=== PATIENT | female | born 1960 | race Caucasian/White ===

== ENCOUNTER 2022-05-14 11:08 | Outpatient (CLI) | payer OTHER, SELFPAY ==
--- NOTE | 2022-05-14 11:34 | ECG_ITS ---
Measurements Intervals [place] Rate: 68 P: 9 VA: 140 QRS: 3 QRSD: 90 T: 21 QT: 387 QTc: 413 Interpretive Statements SINUS RHYTHM BASELINE ARTIFACT- I, II, III, AVR, AVL, AVF, V1-V6 NORMAL ECG NO PREVIOUS ECG AVAILABLE FOR COMPARISON Electronically Signed On 05-14-2022 12:31:02 ANATOMY PROFESSOR by Zach Abraham D.O.
== END 2022-05-14 11:09 | disposition home or self-care (01) ==
LOC: ANHSURGERY 11:15
PROVIDERS: Visit Provider Otolaryngology
DX: I10 Essential (primary) hypertension (principal); Z01.818 Encounter for other preprocedural examination
CPT/HCPCS: 93005

== ENCOUNTER 2022-05-17 01:07 | Day surgery (SDC) | payer OTHER, SELFPAY ==
[2022-05-10 14:25] VITALS: BMI 28.0
--- NOTE | 2022-05-10 14:31 | PC.NURSE ---
Report to the Outpatient Waiting Room, entrance under the green pavilion located off [facility], at time 0730 on date 05/17/22. Planned Procedure Time: 0930. Time changes happen often and if your time is changed the preop area will call you the afternoon before. - You and your visitor will be asked to self-screen and do not enter if you have any COVID symptoms. - We encourage only one visitor and NO visitors under age 16 are allowed at this time. Your visitor will receive communication by the phone number that is given day of service. - The patient visitor is requested to social distance or may leave the building when not with patient due to restrictions. - A mask is OPTIONAL within the hospital. Patients may have clear liquids (water, carbonated beverages, clear teas, apple juice) until 3 hours prior to surgery (0630) with a maximum of 20 ounces. - No food from midnight until time of surgery Take the following medications with a SIP of water the morning of surgery: NONE Medications to discontinue per physician: VITAMINS/SUPPLEMENTS Date to take last dose: 05/13/22 Please no make-up, nail [place], hairspray, perfume, deodorant, or body powder the day of surgery. No jewelry (including any body piercings) or valuables the day of surgery, leave them at home. Please take a shower or bath the night before, or the morning of, surgery with an antibacterial soap. Wear comfortable, loose fitting clothing. - Jewelry must be removed prior to entering the operating room. Rings and piercings that are not removed may be cut off. - The hospital will not accept responsibility for valuables. - Please leave all valuables, including medications, at home the day of surgery. If you are going home after surgery, a licensed driver supervisor must drive you home. - NO public transportation without another adult. - We recommend that an adult stay with you for 24 hours following discharge. - We also recommend that you do not drive, make important decision, drink alcoholic beverages, or take any drugs that were not prescribed by your health care provider for at least 24 hours after your discharge time. Follow any additional instructions given to you from your surgeon. If you or anyone in your household have experienced Covid symptoms in the past week, please notify your surgeon or the nurse liaison at the phone number below for possible testing. Telephone instructions given to KRISTINE CHAMBERLAIN and asked if any additional questions and then verbalized understanding. Patient advised to call surgeon office or pre surgery nurse liaison [phone] if any additional questions.
--- NOTE | 2022-05-14 16:00 | P.PNAN_ITS ---
Anes - Initial Pre Proc Eval Procedure: Operation Date: 05/17/22 07:30 Proposed Procedures p Left Ear Tympanoplasty - Rafal Presley MD Date/Time: 05/14/22 16:00 Surgeon: Rafal Presley MD Pre Op Diagnosis: Tympanic Membrane Perforation Lt Ear Patient Data Age: 61 Gender: F Height: 1.75 m Weight: 86.2 kg Allergies Allergy/AdvReac Type Severity Reaction Status Date / Time No Known Allergies Allergy Verified 05/17/22 06:10 Home Medications Medication Instructions Recorded Confirmed Type ascorbic acid (vitamin C) 500 mg 500 mg PO DAILY 05/10/22 05/17/22 History tablet (Vitamin C) cholecalciferol (vitamin D3) 125 125 mcg PO DAILY 05/10/22 05/17/22 History mcg (5,000 unit) tablet (Vitamin D3) lisinopril 20 mg tablet 20 mg PO DAILY 05/10/22 05/17/22 History multivitamin 1 tablet PO DAILY 05/10/22 05/17/22 History Patient hx anesthesia problems: none Family hx anesthesia problems: none Results Review: All pre-operative results and documents have been reviewed as part of the pre- operative evaluation. [facility] Past Medical History Medical History Breast cancer HTN (hypertension) Overweight (BMI 25.0-29.9) Social History Social History Smoking status: Never smoker Alcohol intake: current Drinks per week: 3 Substance use: never Substance use type: does not use Living arrangements: with family Spiritual care concerns: No Anes - Eval Final PreProcedure Day of Procedure 05/14/22 16:00 Patient weight: overweight Heart: regular rate and rhythm Lungs: clear to auscultation and normal air movement Airway: Mallampati scale class II Neurological: alert and oriented Last oral intake: >/= 8 hours ASA classification: III Emergent: no Anesthetic plan: proceed Anesthesia type and monitoring: general ETT Results Review: All pre-operative results and documents have been reviewed as part of the pre- operative evaluation. Informed Consent: The patient's anesthetic plan and its attendant risks and benefits were discussed with the patient/family/POA. Questions were solicited and answers provided to the satisfaction of the patient/family/POA.
[2022-05-17] VITALS (7 sets, daily range): BP systolic 134–165; BP diastolic 68–91; PULSE 75–84; RESP 14–16; TEMP 36.4–36.5; O2SAT 92–100
--- NOTE | 2022-05-17 06:58 | PM.IMHP ---
H&P: HPI History of Present Illness Date/Time: 05/17/22 06:58 Chief Complaint: left TM perforation Narrative: Lef tTM perforation following AOM 6 months ago Review of Systems Review of Systems: All systems reviewed & are unremarkable except as noted in HPI and below PMFSH Past Medical History Medical History Breast cancer HTN (hypertension) Overweight (BMI 25.0-29.9) Social History Social History Smoking status: Never smoker Alcohol intake: current Drinks per week: 3 Substance use: never Substance use type: does not use Living arrangements: with family Spiritual care concerns: No Meds Home Medications and Allergies Home Medications Medication Instructions Recorded Confirmed Type ascorbic acid (vitamin C) 500 mg 500 mg PO DAILY 05/10/22 05/17/22 History tablet (Vitamin C) cholecalciferol (vitamin D3) 125 125 mcg PO DAILY 05/10/22 05/17/22 History mcg (5,000 unit) tablet (Vitamin D3) lisinopril 20 mg tablet 20 mg PO DAILY 05/10/22 05/17/22 History multivitamin 1 tablet PO DAILY 05/10/22 05/17/22 History Allergies Allergy/AdvReac Type Severity Reaction Status Date / Time No Known Allergies Allergy Verified 05/17/22 06:10 Vital Signs Vital Signs - 24 hr 05/17/22 06:17 Temperature 36.4 C L Pulse Rate 75 Respiratory Rate 16 Blood Pressure 165/91 H Pulse Oximetry 100 Oxygen Delivery Room Air Exam Narrative: 30% left central perforation, no cholesteatoma, rest of exam wnl Assessment and Plan Assessment and plan (1) Perforation of left tympanic membrane: Code(s): H72.92 - Unspecified perforation of tympanic membrane, left ear Status: Acute Plan Alma is here for left medial graft tympanoplasty for perforation after acute otitis media that did not resolve on antibiotics. r/b/a reviewed, left ear marked, she underatnds and elects to proceed. Refer to outpt H&P for details.
--- NOTE | 2022-05-17 07:00 | WPDHPUPDATE1 ---
History and Physical Update Update Date/Time: 05/17/22 07:00 History and Physical has been reviewed, including an updated exam of the patient. There are NO changes in the patient's condition. Risks, benefits, and alternatives have been discussed and questions answered. Patient agrees to proceed with procedure.
[2022-05-17] MEDS: LACTATED RINGERS 1,000 ML 30 ML IV CONT ×2 (07:04→09:07)
[2022-05-17] MEDS: ceFAZolin 2 GM/D5W 50 ML 2 GM/50 ML BAG IVPB (07:25)
[2022-05-17] MEDS: EPINEPHrine HCL INJ 1 MG/ML AMPUL IRRIGATION (07:59)
[2022-05-17] MEDS: MUPIROCIN 2% OINT 22 GM TUBE 1 APPLIC TOPICAL (08:59)
--- NOTE | 2022-05-17 09:13 | W.PM.PROC2 ---
Procedure Note - Detailed Date of Procedure 05/17/22 Pre-op Diagnosis Tympanic Membrane Perforation Lt Ear Post-op Diagnosis Same Procedure Performed left medial graft tympanoplasty with temporalis fascial graft Surgeon Rafal Presley MD Anesthesia General Indications left TM perforation Findings 30% anterior left TM perforation, intact ossicular chain Description of Procedure On the date of surgery, the patient was identified in the preoperative holding area.? The left ear was marked indicating the correct side of surgery.? They consented to surgery and was brought back to the operating room and placed under general anesthesia.? A timeout was performed verifying the correct patient identity and procedure to be performed.? The bed was rotated 90 degrees and a small amount of hair was trimmed from the left postauricular area.? They were then prepped and draped in standard fashion for left sided tympanoplasty. Attention first was directed through the ear canal.? Cerumen was removed under binocular microscopy and the perforation was examined and found to be 30-40% of the size of the tympanic membrane.? The middle ear space was dry.? The edges of the perforation were freshened using a gómez pick and microcup forceps.? Next, a 4 quadrant injection was performed with 1% lidocaine with 1:100k epinephrine.? The postauricular sulcus was also injected.? Using an angled and straight [place] blade, a vascular strip was elevated and tympanomeatal flap incisions were made.? The tympanomeatal flap was then elevated partially and a cotton ball soaked in 1:1000 epinephrine diluted with 10cc of saline was placed in the canal. Next, attention was directed behind the ear.? An incision was made in the post-auricular sulcus.? Using bovie electrocautery, dissection was performed through the subcutaneous tissues down to the level of the fascia.? The temporalis fascia was then identified and dissected free superficially and deep.? A 15 blade was used to incise through the fascia and then was elevated.? A 2x2cm window of fascia was then harvested, flattened on a antony block and then placed in a graft press for 5 minutes, then opened to dry. While the graft was prepared, the tympanomeatal flap was elevated and the annulus was lifted out of the annular groove.? The middle ear space was entered with a pick and the annulus was fully elevated out of the groove and the tympanomeatal flap was completely elevated.? Several small pieces of nasopore were placed in the middle ear space.? Next, the graft was? placed in the canal and in the middle ear space medial to the [place] tympanic membrane.? Some manipulation allowed it to cover the entire perforation.? Nasopore was then packed in the middle ear space further to bulk out the graft.? Once satisfied with the positioning covering the entire perforation, the tympanomeatal flap and graft were laid down.? The ear canal was further packed with nasopore to the catilaginous meatus.? The postauricular incision was then closed with 3-0 vicryl, 4-0 monocryl and dermabond in a layered fashion.? The canal was filled with mupirocin ointment and a cotton ball was placed in the meatus.? The drapes were taken down and care of the patient was returned to anesthsia who woke them up in the OR and transferred to the PACU for recovery in stable condition without complication. Estimated Blood Loss -10.0 Drains No Packing Yes (nasopore in EAC) Pathology None sent Complications No immediate complications Condition Stable Disposition PACU
== END 2022-05-17 10:46 | disposition home or self-care (01) ==
PROVIDERS: Visit Provider Otolaryngology
PROC: (CPT 69610; principal; 2022-05-17 07:30)
DX: H72.92 Unspecified perforation of tympanic membrane, left ear (principal); I10 Essential (primary) hypertension; Z85.3 Personal history of malignant neoplasm of breast
CPT/HCPCS: 69610; 15769; A9270; J0171; J0690; J1100; J2250; J2370; J2405; J3010; J7120